=== PATIENT | male | born 1970 | race Two or more races ===

== ENCOUNTER → 2022-03-11 | Outpatient (REF) | payer OTHER ==
[2022-03-11 19:00] LABS: CREATININE,RANDOM URINE 43.8 MG/DL
== END ==
LOC: M LAB REF 17:40
PROVIDERS: ATTEND Internal Medicine Nephrology
DX: E87.1 Hypo-osmolality and hyponatremia (principal)

== ENCOUNTER 2022-03-30 23:01 | Inpatient (IN) | payer OTHER ==
[~2022-03-30] VITALS: Ht 175.3 cm; Wt 103.1 kg
[2022-03-31 11:00] VITALS: BP 135/80
[2022-03-31] MEDS ORDERED: D10W 1,000 ML IV SCH (11:15)
[2022-03-31] MEDS ORDERED: OCTREOTIDE ACETATE 100MCG/ML VIAL **IV ADMINISTRATION ONLY IV ONE (11:40)
[2022-03-31 12:06] LABS: BASO % 0.4 % (0.0-1.0); EOS % 0.4 % (0.0-3.0); HEMATOCRIT 35.5 % (42.0-52.0); HEMOGLOBIN 10.1 g/dl (13.5-17.5); LYMPH # 0.5 10^3/uL (1.5-5.0); LYMPH % 9.4 % (24.0-44.0); MEAN CORPUSCULAR HEMOGLOBIN 21.1 pg (27.0-33.0); MEAN CORPUSCULAR HGB CONC 28.5 g/dl (32.0-36.5); MEAN CORPUSCULAR VOLUME 74.3 fl (80.0-96.0); MONO # 0.7 10^3/uL (0.0-0.8); MONO % 13.2 % (2.0-8.0); NEUTROPHILS # 4.2 10^3/uL (1.5-8.5); NEUTROPHILS % 76.1 % (36.0-66.0); PLATELET COUNT, AUTOMATED 290 10^3/uL (150-450); RED BLOOD COUNT 4.78 10^6/uL (4.30-6.10); WHITE BLOOD COUNT 5.5 10^3/uL (4.0-10.0)
[2022-03-31 12:29] LABS: MAGNESIUM LEVEL 1.9 MG/DL (1.8-2.4)
[2022-03-31 12:31] LABS: ALBUMIN 3.3 G/DL (3.2-5.2); ALKALINE PHOSPHATASE 131 U/L (46-116); ALT/SGPT 24 U/L (7.0-40); AST/SGOT 31 U/L (<34); BILIRUBIN,TOTAL 1.3 MG/DL (0.3-1.2); BLOOD UREA NITROGEN 13 MG/DL (9-23); CALCIUM LEVEL 8.4 MG/DL (8.5-10.1); CARBON DIOXIDE LEVEL 24 MMOL/L (20-31); CHLORIDE LEVEL 98 MMOL/L (98-107); CREATININE FOR GFR 0.76 MG/DL (0.70-1.30); GLOMERULAR FILTRATION RATE > 60.0 (>56); GLUCOSE, FASTING 107 MG/DL (60-100); POTASSIUM SERUM 3.9 MMOL/L (3.5-5.1); SODIUM LEVEL 131 MMOL/L (136-145); TOTAL PROTEIN 6.8 G/DL (5.7-8.2)
[2022-03-31] MEDS ORDERED: AMIL25TA PO (12:31)
[2022-03-31] MEDS ORDERED: METF750T36 PO (12:31)
[2022-03-31] MEDS ORDERED: GLIP10TA18 PO (12:31)
[2022-03-31] MEDS ORDERED: ATOR80TA59 PO (12:31)
[2022-03-31] MEDS ORDERED: FARX1TAB3 PO (12:31)
[2022-03-31] MEDS ORDERED: ENTR1TAB PO (12:31)
[2022-03-31] MEDS ORDERED: ASPI-226 PO (12:31)
[2022-03-31] MEDS ORDERED: CLOP75TA2 PO (12:31)
[2022-03-31] MEDS ORDERED: GLIP5TAB20 PO (12:31)
[2022-03-31] MEDS ORDERED: OMEP20TA17 PO (12:32)
[2022-03-31] MEDS ORDERED: VITA200012 PO (12:32)
[2022-03-31] MEDS ORDERED: HOME MED LIST COMPLETE! XX SCH (12:35)
[2022-03-31 13:08] VITALS: BP 116/78
[2022-03-31] MEDS: CLOPIDOGREL 75 MG TAB PO SCH (13:14)
[2022-03-31] MEDS: ASPIRIN 81MG ENTERIC TABLET PO SCH (13:14)
[2022-03-31 15:49] LABS: IRON (FE) 27 UG/DL (65-175); PERCENT SATURATION 7.8 % (19.7-50.0); TOTAL IRON BINDING CAPACITY 347 UG/DL (250-425)
[2022-03-31 15:52] LABS: FERRITIN 53.8 NG/ML (10.5-307.3)
[2022-03-31 16:00] VITALS: BP 133/69
[2022-03-31] MEDS: ATORVASTATIN 20 MG TAB PO SCH (16:01)
[2022-03-31] MEDS: aMILoride 5 MG TAB PO SCH (16:02)
[2022-03-31] MEDS ORDERED: FERRIC CARBOXYMALTOSE INJ 750 MG, VIAL MATE ADAPTER 1 EACH in NS 250 ML IV ONE (19:00)
[2022-03-31 20:00] VITALS: BP 124/75
[2022-03-31] MEDS: OSELTAMIVIR PHOSPHATE 75 MG CAP (TAMIFLU) PO SCH (20:33)
[2022-04-01] VITALS: BP 120/71
[2022-04-01 04:00] VITALS: BP 125/74
[2022-04-01 04:44] LABS: HEMATOCRIT 33.3 % (42.0-52.0); HEMOGLOBIN 9.8 g/dl (13.5-17.5); MEAN CORPUSCULAR HEMOGLOBIN 21.7 pg (27.0-33.0); MEAN CORPUSCULAR HGB CONC 29.4 g/dl (32.0-36.5); MEAN CORPUSCULAR VOLUME 73.7 fl (80.0-96.0); PLATELET COUNT, AUTOMATED 259 10^3/uL (150-450); RED BLOOD COUNT 4.52 10^6/uL (4.30-6.10); WHITE BLOOD COUNT 4.5 10^3/uL (4.0-10.0)
[2022-04-01 05:06] LABS: BLOOD UREA NITROGEN 13 MG/DL (9-23); CALCIUM LEVEL 8.2 MG/DL (8.5-10.1); CARBON DIOXIDE LEVEL 22 MMOL/L (20-31); CHLORIDE LEVEL 98 MMOL/L (98-107); CREATININE FOR GFR 0.83 MG/DL (0.70-1.30); GLOMERULAR FILTRATION RATE > 60.0 (>56); GLUCOSE, FASTING 136 MG/DL (60-100); POTASSIUM SERUM 4.2 MMOL/L (3.5-5.1); SODIUM LEVEL 129 MMOL/L (136-145)
[2022-04-01] MEDS ORDERED: GLUCAGON INJ 1MG VIAL SC PRN (07:35)
[2022-04-01] MEDS ORDERED: DEXTROSE 50% 50 ML SYRINGE IV PRN (07:35)
[2022-04-01] MEDS ORDERED: GLUCOSE 4GM CHEW TABLET PO PRN (07:35)
[2022-04-01 08:00] VITALS: BP 121/77
[2022-04-01] MEDS: ASPIRIN 81MG ENTERIC TABLET PO SCH (08:58)
[2022-04-01] MEDS: aMILoride 5 MG TAB PO SCH (08:58)
[2022-04-01] MEDS: OSELTAMIVIR PHOSPHATE 75 MG CAP (TAMIFLU) PO SCH (08:58)
[2022-04-01] MEDS: CLOPIDOGREL 75 MG TAB PO SCH (08:58)
[2022-04-01] MEDS: ATORVASTATIN 20 MG TAB PO SCH (08:58)
[2022-04-01] MEDS ORDERED: PANTOPRAZOLE 40MG TAB (PROTONIX) PO SCH (09:00)
[2022-04-01] MEDS ORDERED: ATORVASTATIN 20 MG TAB PO SCH (09:00)
[2022-04-01] MEDS ORDERED: amLODIPine 5 MG TAB PO SCH (09:00)
[2022-04-01] MEDS ORDERED: BENZONATATE 100MG CAPSULE PO PRN (10:15)
[2022-04-01] MEDS ORDERED: BENZ-18 PO (10:18)
[2022-04-01] MEDS ORDERED: PANT40TA29 PO (10:18)
[2022-04-01] MEDS ORDERED: OSEL75CA PO (10:18)
[2022-04-01] MEDS ORDERED: ENTR1TAB PO (10:18)
== END 2022-04-01 12:06 | disposition home or self-care (01) | DRG 420 ==
LOC: M ICU 03-31 11:03 → UNDOADMIN 03-31 11:03 → M ICU 03-31 11:06
PROVIDERS: ADMIT Internal Medicine; ATTEND Internal Medicine
DX: E11.649 Type 2 diabetes mellitus with hypoglycemia without coma (principal); I11.0 Hypertensive heart disease with heart failure; I50.22 Chronic systolic (congestive) heart failure; I48.11 Longstanding persistent atrial fibrillation; T38.3X5A Adverse effect of insulin and oral hypoglycemic [antidiabetic] drugs, initial encounter; K21.9 Gastro-esophageal reflux disease without esophagitis; J10.1 Influenza due to other identified influenza virus with other respiratory manifestations; D50.9 Iron deficiency anemia, unspecified; R55 Syncope and collapse; I69.398 Other sequelae of cerebral infarction; H53.451 Other localized visual field defect, right eye; Z79.82 Long term (current) use of aspirin; Z79.02 Long term (current) use of antithrombotics/antiplatelets; Z79.84 Long term (current) use of oral hypoglycemic drugs; Z79.899 Other long term (current) drug therapy; Z88.0 Allergy status to penicillin; Z87.891 Personal history of nicotine dependence

== ENCOUNTER → 2022-04-29 | Outpatient (CLI) | payer OTHER ==
[~2022-04-29] MED LIST: AMIL25TA PO; ASPI-226 PO; ATOR80TA59 PO; BENZ-18 PO; CLOP75TA2 PO; ENTR1TAB PO; FARX1TAB3 PO; GLIP10TA18 PO; GLIP5TAB20 PO; METF750T36 PO; OMEP20TA17 PO; OSEL75CA PO; PANT40TA29 PO; VITA200012 PO
== END ==
LOC: M LABSMTC 11:07
PROVIDERS: ATTEND Anesthesiology
DX: Z01.818 Encounter for other preprocedural examination (principal)

== ENCOUNTER 2022-05-03 12:22 | Day surgery (SDC) | payer OTHER ==
[~2022-05-03] VITALS: Ht 175.3 cm; Wt 103.0 kg
[2022-05-03] MEDS ORDERED: LR 1,000 ML IV SCH (12:55)
[2022-05-03] MEDS ORDERED: CETACAINE SPRAY 5GM As Ordered ONE (15:13)
[2022-05-03] MEDS ORDERED: LIDOCAINE 2% 100MG/5ML SDV (FOR ANES.) As Ordered ONE (15:30)
[2022-05-03] MEDS ORDERED: propofoL 200 MG/20 ML VIAL As Ordered ONE (15:30)
[2022-05-03] MEDS ORDERED: MIDAZOLAM INJ 2MG/2ML VIAL As Ordered ONE (15:31)
[2022-05-03 17:15] VITALS: BP 147/88
== END 2022-05-03 18:25 | disposition home or self-care (01) ==
LOC: M OPP 12:22
PROVIDERS: ATTEND Internal Medicine Cardiovascular Disease
DX: Z95.818 Presence of other cardiac implants and grafts (principal); Z88.0 Allergy status to penicillin

== ENCOUNTER → 2023-03-06 | Outpatient (REF) | payer OTHER ==
[2023-03-06 19:37] LABS: FREE T4 1.16 NG/DL (0.89-1.76)
[2023-03-07 11:49] LABS: THYROID STIMULATING HORMONE 2.729 uIU/ML (0.55-4.78)
== END ==
LOC: M LAB REF 17:31
PROVIDERS: ATTEND Internal Medicine Nephrology
DX: I50.33 Acute on chronic diastolic (congestive) heart failure (principal); E03.9 Hypothyroidism, unspecified

== ENCOUNTER → 2023-03-17 | Outpatient (CLI) | payer OTHER | LOC: M PLARAD 12:28 | PROVIDERS: ATTEND Internal Medicine Pulmonary Disease | DX: R91.1 Solitary pulmonary nodule (principal) ==

== ENCOUNTER → 2023-05-06 | Outpatient (REF) | payer OTHER | LOC: M LAB REF 16:59 | PROVIDERS: ATTEND Internal Medicine Nephrology | DX: D89.2 Hypergammaglobulinemia, unspecified (principal) ==

== ENCOUNTER 2023-05-22 20:46 | Observation (INO) | payer OTHER ==
[~2023-05-22] VITALS: Ht 175.3 cm; Wt 110.5 kg
[2023-05-22] MEDS ORDERED: POTA10CA60 PO (20:56)
[2023-05-22] MEDS ORDERED: PANT40TA29 PO (20:56)
[2023-05-22] MEDS ORDERED: SPIR-10 PO (20:56)
[2023-05-22] MEDS ORDERED: TORS100T PO (20:56)
[2023-05-22] MEDS ORDERED: TORS20TA2 PO (20:56)
[2023-05-22] MEDS ORDERED: IRON1TAB2 PO (20:56)
[2023-05-22 21:57] LABS: BASO # 0.1 10^3/uL (0.0-0.2); BASO % 0.8 % (0.0-1.0); EOS # 0.2 10^3/uL (0.0-0.5); EOS % 1.6 % (0.0-3.0); HEMATOCRIT 39.4 % (42.0-52.0); HEMOGLOBIN 13.7 g/dl (13.5-17.5); LYMPH # 1.1 10^3/uL (1.5-5.0); LYMPH % 10.7 % (24.0-44.0); MEAN CORPUSCULAR HEMOGLOBIN 33.3 pg (27.0-33.0); MEAN CORPUSCULAR HGB CONC 34.8 g/dl (32.0-36.5); MEAN CORPUSCULAR VOLUME 95.9 fl (80.0-96.0); MONO # 1.3 10^3/uL (0.0-0.8); MONO % 12.4 % (2.0-8.0); NEUTROPHILS # 7.6 10^3/uL (1.5-8.5); NEUTROPHILS % 74.2 % (36.0-66.0); PLATELET COUNT, AUTOMATED 220 10^3/uL (150-450); RED BLOOD COUNT 4.11 10^6/uL (4.30-6.10); WHITE BLOOD COUNT 10.2 10^3/uL (4.0-10.0)
[2023-05-22 22:35] LABS: CALCIUM LEVEL 9.8 MG/DL (8.5-10.1); CREATININE FOR GFR 2.25 MG/DL (0.70-1.30); GLOMERULAR FILTRATION RATE 32.6 (>56); POTASSIUM SERUM 4.1 MMOL/L (3.5-5.1)
[2023-05-23] MEDS ORDERED: NS 1,000 ML IV ONE (04:05)
[2023-05-23 04:54] LABS: RSV AMPLIFICATION NEGATIVE (NEGATIVE)
[2023-05-23 05:18] LABS: CK-MB VALUE MASS 2.5 NG/ML (<3.6)
[2023-05-23 05:19] LABS: MB/CK RELATIVE INDEX 2.29 (< OR =4)
[2023-05-23] MEDS ORDERED: ACETAMINOPHEN TAB 650MG DOSE (2X325MG) PO PRN (05:55)
[2023-05-23] MEDS ORDERED: POTA-150 PO (06:49)
[2023-05-23] MEDS ORDERED: FERR1TAB8 PO (06:49)
[2023-05-23] MEDS ORDERED: ENTR1TAB PO (06:49)
[2023-05-23] MEDS ORDERED: HOME MED LIST COMPLETE! XX SCH (06:50)
[2023-05-23] MEDS ORDERED: GLUCAGON INJ 1MG VIAL SC PRN (07:00)
[2023-05-23] MEDS ORDERED: DEXTROSE 50% 50ML SYRINGE IV PRN (07:00)
[2023-05-23] MEDS ORDERED: GLUCOSE 4GM CHEW TABLET PO PRN (07:00)
[2023-05-23 07:32] LABS: HEMATOCRIT 41.1 % (42.0-52.0); HEMOGLOBIN 13.9 g/dl (13.5-17.5); MEAN CORPUSCULAR HEMOGLOBIN 32.7 pg (27.0-33.0); MEAN CORPUSCULAR HGB CONC 33.8 g/dl (32.0-36.5); MEAN CORPUSCULAR VOLUME 96.7 fl (80.0-96.0); PLATELET COUNT, AUTOMATED 206 10^3/uL (150-450); RED BLOOD COUNT 4.25 10^6/uL (4.30-6.10); WHITE BLOOD COUNT 8.8 10^3/uL (4.0-10.0)
[2023-05-23 07:48] LABS: CK-MB VALUE MASS 2.3 NG/ML (<3.6)
[2023-05-23 07:49] LABS: CALCIUM LEVEL 9.4 MG/DL (8.5-10.1); CREATININE FOR GFR 1.92 MG/DL (0.70-1.30); GLOMERULAR FILTRATION RATE 39.2 (>56); MB/CK RELATIVE INDEX 2.34 (< OR =4); POTASSIUM SERUM 4.1 MMOL/L (3.5-5.1)
[2023-05-23] MEDS: PANTOPRAZOLE 40MG TAB (PROTONIX) PO SCH (08:49)
[2023-05-23] MEDS: ATORVASTATIN 20 MG TAB PO SCH (08:49)
[2023-05-23] MEDS: INSULIN LISPRO (NovoLOG) PER UNIT SC SCH ×3 (08:49→16:52)
[2023-05-23] MEDS: ASPIRIN 81MG ENTERIC TABLET PO SCH (08:49)
[2023-05-23 10:58] VITALS: BP 123/75; TEMP 97.3; O2SAT 98
[2023-05-23] MEDS: HEPARIN SOD (PORCINE) 5000UNITS/ML 1ML VIAL/SYRINGE SC SCH ×2 (13:13→21:05)
[2023-05-23 13:41] VITALS: BP 120/75; TEMP 97.7; O2SAT 96
[2023-05-23 20:40] VITALS: BP 117/72; TEMP 97.5; O2SAT 93
[2023-05-23] MEDS ORDERED: INSULIN LISPRO (NovoLOG) PER UNIT SC SCH (21:00)
[2023-05-24] MEDS: HEPARIN SOD (PORCINE) 5000UNITS/ML 1ML VIAL/SYRINGE SC SCH (05:38)
[2023-05-24 06:00] VITALS: BP 114/74; TEMP 97.5; O2SAT 97
[2023-05-24 06:14] LABS: ALBUMIN 3.7 G/DL (3.2-5.2); CALCIUM LEVEL 9.4 MG/DL (8.5-10.1); CREATININE FOR GFR 1.61 MG/DL (0.70-1.30); PHOSPHORUS LEVEL 4.3 MG/DL (2.5-4.9); POTASSIUM SERUM 4.1 MMOL/L (3.5-5.1)
[2023-05-24] MEDS: PANTOPRAZOLE 40MG TAB (PROTONIX) PO SCH (07:56)
[2023-05-24] MEDS: ASPIRIN 81MG ENTERIC TABLET PO SCH (07:56)
[2023-05-24] MEDS: ATORVASTATIN 20 MG TAB PO SCH (07:56)
[2023-05-24] MEDS: INSULIN LISPRO (NovoLOG) PER UNIT SC SCH ×2 (07:56→11:54)
[2023-05-24] MEDS ORDERED: SPIRONOLACTONE 25 MG TAB PO ONE (11:00)
[2023-05-24] MEDS ORDERED: TORSEMIDE 100 MG TAB PO ONE (11:00)
[2023-05-25] MEDS ORDERED: TORSEMIDE 100 MG TAB PO SCH (09:00)
[2023-05-25] MEDS ORDERED: SPIRONOLACTONE 25 MG TAB PO SCH (09:00)
== END 2023-05-24 12:07 | disposition home or self-care (01) ==
LOC: M ED 20:46 → M ED INP 20:47 → M MSPAV 05-23 10:58
PROVIDERS: ADMIT Internal Medicine; ATTEND Internal Medicine Nephrology
DX: N17.8 Other acute kidney failure (principal); I50.30 Unspecified diastolic (congestive) heart failure; I50.812 Chronic right heart failure; I48.91 Unspecified atrial fibrillation; Z86.73 Personal history of transient ischemic attack (TIA), and cerebral infarction without residual deficits; K21.9 Gastro-esophageal reflux disease without esophagitis; I11.9 Hypertensive heart disease without heart failure; E11.9 Type 2 diabetes mellitus without complications; E78.5 Hyperlipidemia, unspecified; G47.33 Obstructive sleep apnea (adult) (pediatric); Z79.82 Long term (current) use of aspirin; Z79.84 Long term (current) use of oral hypoglycemic drugs; Z79.899 Other long term (current) drug therapy; Z88.0 Allergy status to penicillin; Z88.8 Allergy status to other drugs, medicaments and biological substances
CPT/HCPCS: 36415; 71045; 76775; 80048; 80069; 81001; 82550; 82553; 83880; 84484; 85025; 85027; 87631; 93005; 96372; 96374; 99284; J1815

== ENCOUNTER → 2023-06-11 | Outpatient (CLI) | payer OTHER ==
[~2023-06-11] MED LIST changes: +FERR1TAB8 PO; +IRON1TAB2 PO; +POTA-150 PO; +POTA10CA60 PO; +SPIR-10 PO; +TORS100T PO; +TORS20TA2 PO
== END ==
LOC: M PLAIMG 08:45
PROVIDERS: ATTEND Internal Medicine Cardiovascular Disease
DX: I11.0 Hypertensive heart disease with heart failure (principal); I34.0 Nonrheumatic mitral (valve) insufficiency; I50.32 Chronic diastolic (congestive) heart failure

== ENCOUNTER → 2023-11-05 | Outpatient (CLI) | payer OTHER ==
[~2023-11-05] MED LIST changes: -POTA10CA60 PO; +POTA10CA70 PO
[2023-11-05 17:26] LABS: BASO # 0.1 10^3/uL (0.0-0.2); BASO % 0.9 % (0.0-1.0); EOS # 0.2 10^3/uL (0.0-0.5); EOS % 1.8 % (0.0-3.0); HEMATOCRIT 41.9 % (42.0-52.0); HEMOGLOBIN 13.8 g/dl (13.5-17.5); LYMPH # 0.9 10^3/uL (1.5-5.0); LYMPH % 6.8 % (24.0-44.0); MEAN CORPUSCULAR HEMOGLOBIN 33.1 pg (27.0-33.0); MEAN CORPUSCULAR HGB CONC 32.9 g/dl (32.0-36.5); MEAN CORPUSCULAR VOLUME 100.5 fl (80.0-96.0); MONO # 1.6 10^3/uL (0.0-0.8); MONO % 12.4 % (2.0-8.0); NEUTROPHILS # 9.7 10^3/uL (1.5-8.5); NEUTROPHILS % 77.5 % (36.0-66.0); PLATELET COUNT, AUTOMATED 232 10^3/uL (150-450); RED BLOOD COUNT 4.17 10^6/uL (4.30-6.10); WHITE BLOOD COUNT 12.5 10^3/uL (4.0-10.0)
[2023-11-05 18:01] LABS: ALBUMIN 3.9 G/DL (3.2-5.2); CALCIUM LEVEL 9.4 MG/DL (8.5-10.1); CREATININE FOR GFR 1.37 MG/DL (0.70-1.30); GLOMERULAR FILTRATION RATE 57.6 (>56); MAGNESIUM LEVEL 2.1 MG/DL (1.8-2.4); PERCENT SATURATION 23.8 % (19.7-50.0); PHOSPHORUS LEVEL 3.1 MG/DL (2.5-4.9); POTASSIUM SERUM 4.1 MMOL/L (3.5-5.1)
== END ==
LOC: M PLALAB 14:35
PROVIDERS: ATTEND Internal Medicine Cardiovascular Disease
DX: I50.22 Chronic systolic (congestive) heart failure (principal); I48.21 Permanent atrial fibrillation; I34.0 Nonrheumatic mitral (valve) insufficiency; I11.0 Hypertensive heart disease with heart failure

== ENCOUNTER → 2023-11-21 | Outpatient (REF) | payer OTHER ==
[2023-11-21 18:09] LABS: ALBUMIN 3.9 G/DL (3.2-5.2); BILIRUBIN,DIRECT 1.1 MG/DL (<0.4); BILIRUBIN,TOTAL 1.9 MG/DL (0.3-1.2); TOTAL PROTEIN 7.5 G/DL (5.7-8.2)
== END ==
LOC: M LAB REF 17:09
PROVIDERS: ATTEND Internal Medicine Nephrology
DX: E87.1 Hypo-osmolality and hyponatremia (principal); R18.8 Other ascites

== ENCOUNTER → 2024-02-11 | Outpatient (CLI) | payer OTHER ==
[2024-02-11 11:40] LABS: BASO # 0.1 10^3/uL (0.0-0.2); BASO % 0.7 % (0.0-1.0); EOS # 0.2 10^3/uL (0.0-0.5); EOS % 2.1 % (0.0-3.0); HEMATOCRIT 37.2 % (42.0-52.0); HEMOGLOBIN 12.5 g/dl (13.5-17.5); LYMPH # 0.7 10^3/uL (1.5-5.0); LYMPH % 6.2 % (24.0-44.0); MEAN CORPUSCULAR HEMOGLOBIN 33.2 pg (27.0-33.0); MEAN CORPUSCULAR HGB CONC 33.6 g/dl (32.0-36.5); MEAN CORPUSCULAR VOLUME 98.9 fl (80.0-96.0); MONO # 1.7 10^3/uL (0.0-0.8); NEUTROPHILS # 8.4 10^3/uL (1.5-8.5); NEUTROPHILS % 75.6 % (36.0-66.0); PLATELET COUNT, AUTOMATED 265 10^3/uL (150-450); RED BLOOD COUNT 3.76 10^6/uL (4.30-6.10)
[2024-02-11 12:07] LABS: ALBUMIN 3.9 G/DL (3.2-5.2); CALCIUM LEVEL 10.2 MG/DL (8.5-10.1); CREATININE FOR GFR 2.31 MG/DL (0.70-1.30); GLOMERULAR FILTRATION RATE 31.5 (>56); PERCENT SATURATION 23.8 % (19.7-50.0); PHOSPHORUS LEVEL 3.9 MG/DL (2.5-4.9)
[2024-02-11 12:08] LABS: FERRITIN 179.3 NG/ML (10.5-307.3)
== END ==
LOC: M LAB 09:11
PROVIDERS: ATTEND Internal Medicine Cardiovascular Disease
DX: I50.22 Chronic systolic (congestive) heart failure (principal)

== ENCOUNTER → 2024-02-19 | Outpatient (CLI) | payer OTHER | LOC: M EKG 07:57 | PROVIDERS: ATTEND Internal Medicine Cardiovascular Disease | DX: I44.30 Unspecified atrioventricular block (principal); I48.91 Unspecified atrial fibrillation ==

== ENCOUNTER → 2024-03-08 | Outpatient (CLI) | payer OTHER | LOC: M PLAIMG 08:25 | PROVIDERS: ATTEND Internal Medicine Cardiovascular Disease | DX: I50.22 Chronic systolic (congestive) heart failure (principal); I34.0 Nonrheumatic mitral (valve) insufficiency; I27.20 Pulmonary hypertension, unspecified ==

== ENCOUNTER → 2024-04-15 | Outpatient (CLI) | payer OTHER ==
[2024-04-15 16:25] VITALS: BP 121/69; O2SAT 100
== END ==
LOC: M IRPRO 13:44
PROVIDERS: ATTEND Internal Medicine Nephrology
DX: R18.8 Other ascites (principal)

== ENCOUNTER → 2024-05-28 | Outpatient (CLI) | payer OTHER ==
[~2024-05-28] MED LIST changes: +ALLO10TA PO; +BREO1INH INH; +COLC1TAB14 PO; +D3 U5000 PO; +MAGN400T2 PO; +SEMA0.257 SUBQ
== END ==
LOC: M EKG 08:50
PROVIDERS: ATTEND Registered Nurse
DX: I48.91 Unspecified atrial fibrillation (principal); R00.1 Bradycardia, unspecified

== ENCOUNTER 2024-05-31 11:40 | Inpatient (IN) | payer OTHER ==
[~2024-05-31] VITALS: Ht 175.3 cm; Wt 122.5 kg
[~2024-05-31 11:40] MED LIST changes: -ALLO10TA PO; -BREO1INH INH; -COLC1TAB14 PO; -D3 U5000 PO; -MAGN400T2 PO; -SEMA0.257 SUBQ
[2024-05-31 13:02] LABS: BASO # 0.1 10^3/uL (0.0-0.2); BASO % 1.1 % (0.0-1.0); EOS % 0.6 % (0.0-3.0); HEMATOCRIT 33.9 % (42.0-52.0); HEMOGLOBIN 11.5 g/dl (13.5-17.5); LYMPH # 0.5 10^3/uL (1.5-5.0); LYMPH % 7.3 % (24.0-44.0); MEAN CORPUSCULAR HEMOGLOBIN 33.1 pg (27.0-33.0); MEAN CORPUSCULAR HGB CONC 33.9 g/dl (32.0-36.5); MEAN CORPUSCULAR VOLUME 97.7 fl (80.0-96.0); MONO # 1.4 10^3/uL (0.0-0.8); MONO % 21.9 % (2.0-8.0); NEUTROPHILS # 4.2 10^3/uL (1.5-8.5); NEUTROPHILS % 68.8 % (36.0-66.0); PLATELET COUNT, AUTOMATED 217 10^3/uL (150-450); RED BLOOD COUNT 3.47 10^6/uL (4.30-6.10); WHITE BLOOD COUNT 6.2 10^3/uL (4.0-10.0)
[2024-05-31 13:21] LABS: INR 1.28; PROTHROMBIN TIME 16.3 SECONDS (12.5-14.5)
[2024-05-31 13:22] LABS: ALBUMIN 3.9 G/DL (3.2-5.2); BILIRUBIN,DIRECT 1.1 MG/DL (<0.4); CALCIUM LEVEL 9.3 MG/DL (8.5-10.1); CREATININE FOR GFR 4.04 MG/DL (0.70-1.30); GLOMERULAR FILTRATION RATE 16.5 (>56); MAGNESIUM LEVEL 2.3 MG/DL (1.8-2.4); POTASSIUM SERUM 5.5 MMOL/L (3.5-5.1); TOTAL PROTEIN 7.9 G/DL (5.7-8.2)
[2024-05-31] MEDS ORDERED: ALLO10TA PO (14:38)
[2024-05-31] MEDS ORDERED: BREO1INH INH (14:38)
[2024-05-31] MEDS ORDERED: COLC1TAB14 PO (14:38)
[2024-05-31] MEDS ORDERED: MAGN400T2 PO (14:38)
[2024-05-31] MEDS ORDERED: D3 U5000 PO (14:38)
[2024-05-31] MEDS ORDERED: SEMA0.257 SUBQ (14:41)
[2024-05-31] MEDS: PATIROMER SORBITEX CALCIUM 8.4 GM POWDER PACKET (VELTASSA) PO ONE (14:42)
[2024-05-31] MEDS ORDERED: HOME MED LIST COMPLETE! XX SCH (14:50)
[2024-05-31 16:24] LABS: PROCALCITONIN 0.27 ng/ml
[2024-05-31 17:57] LABS: APPEARANCE, BODY FLUID HAZY (CLEAR); PERITONEAL FL COLOR AMBER (COLORLESS); SOURCE, BODY FLUID PERITONEAL
[2024-05-31 18:24] LABS: SOURCE, BODY FLUID ALBUMIN PERITONEAL
[2024-05-31 18:29] LABS: SOURCE, BODY FLUID GLUCOSE PERITONEAL
[2024-05-31 18:30] LABS: SOURCE, BODY FLUID TOT PROTEIN PERITONEAL; TOTAL PROTEIN, BODY FLUID 4.8 G/DL (NOT ESTABLISHED)
[2024-05-31] MEDS: NS (Normal Saline) 0.9% 1,000 ML IV SCH (18:33)
[2024-05-31 19:19] LABS: CALCIUM LEVEL 8.8 MG/DL (8.5-10.1); CREATININE FOR GFR 3.89 MG/DL (0.70-1.30); GLOMERULAR FILTRATION RATE 17.3 (>56); POTASSIUM SERUM 5.2 MMOL/L (3.5-5.1)
[2024-05-31] MEDS: HEPARIN SOD (PORCINE) 5000UNITS/ML 1ML VIAL/SYRINGE SQ SCH (21:01)
[2024-05-31] MEDS: ADVAIR HFA 115/21MCG INHALER INH SCH (22:15)
[2024-06-01 07:47] LABS: ALBUMIN 3.3 G/DL (3.2-5.2); BILIRUBIN,TOTAL 1.9 MG/DL (0.3-1.2); CREATININE FOR GFR 3.23 MG/DL (0.70-1.30); GLOMERULAR FILTRATION RATE 21.4 (>56); TOTAL PROTEIN 6.7 G/DL (5.7-8.2)
[2024-06-01] MEDS: ASPIRIN 81MG ENTERIC TABLET PO SCH (08:07)
[2024-06-01] MEDS: MAGNESIUM OXIDE 400MG TAB (MAG-OX) PO SCH (08:08)
[2024-06-01] MEDS: ATORVASTATIN 20 MG TAB PO SCH (08:08)
[2024-06-01] MEDS: PANTOPRAZOLE 40MG TAB (PROTONIX) PO SCH (08:08)
[2024-06-01 08:09] LABS: BASO % 0.8 % (0.0-1.0); EOS % 0.4 % (0.0-3.0); HEMATOCRIT 32.6 % (42.0-52.0); LYMPH # 0.4 10^3/uL (1.5-5.0); LYMPH % 8.4 % (24.0-44.0); MEAN CORPUSCULAR HGB CONC 33.7 g/dl (32.0-36.5); MEAN CORPUSCULAR VOLUME 97.9 fl (80.0-96.0); MONO # 1.3 10^3/uL (0.0-0.8); MONO % 25.1 % (2.0-8.0); NEUTROPHILS # 3.4 10^3/uL (1.5-8.5); NEUTROPHILS % 65.1 % (36.0-66.0); PLATELET COUNT, AUTOMATED 179 10^3/uL (150-450); RED BLOOD COUNT 3.33 10^6/uL (4.30-6.10); WHITE BLOOD COUNT 5.2 10^3/uL (4.0-10.0)
[2024-06-01] MEDS ORDERED: DAPAGLIFLOZIN PROPANEDIOL 10MG TABLET (FARXIGA) PO SCH (09:00)
[2024-06-01] MEDS: INSULIN LISPRO (NovoLOG) PER UNIT SC SCH ×2 (12:00→21:00)
[2024-06-01] MEDS: PATIROMER SORBITEX CALCIUM 8.4 GM POWDER PACKET (VELTASSA) PO ONE (12:10)
[2024-06-01] MEDS ORDERED: DEXTROSE 50% 50ML SYRINGE IV PRN (12:30)
[2024-06-01] MEDS ORDERED: GLUCAGON INJ 1MG VIAL SC PRN (12:30)
[2024-06-01] MEDS ORDERED: GLUCOSE 4 GM CHEW PO PRN (12:30)
[2024-06-01 13:49] VITALS: BP 119/65; TEMP 97.7; O2SAT 98
[2024-06-01 20:00] VITALS: BP 125/65; TEMP 97.9; O2SAT 96
[2024-06-02 04:39] VITALS: BP 108/69; TEMP 97.3; O2SAT 98
[2024-06-02 06:18] LABS: BASO % 0.7 % (0.0-1.0); EOS # 0.1 10^3/uL (0.0-0.5); HEMATOCRIT 34.7 % (42.0-52.0); HEMOGLOBIN 11.5 g/dl (13.5-17.5); LYMPH # 0.5 10^3/uL (1.5-5.0); LYMPH % 8.4 % (24.0-44.0); MEAN CORPUSCULAR HEMOGLOBIN 32.5 pg (27.0-33.0); MEAN CORPUSCULAR HGB CONC 33.1 g/dl (32.0-36.5); MONO # 1.3 10^3/uL (0.0-0.8); MONO % 21.2 % (2.0-8.0); PLATELET COUNT, AUTOMATED 194 10^3/uL (150-450); RED BLOOD COUNT 3.54 10^6/uL (4.30-6.10); WHITE BLOOD COUNT 5.9 10^3/uL (4.0-10.0)
[2024-06-02 06:40] LABS: CALCIUM LEVEL 9.3 MG/DL (8.5-10.1); CREATININE FOR GFR 2.38 MG/DL (0.70-1.30); GLOMERULAR FILTRATION RATE 30.5 (>56); MAGNESIUM LEVEL 2.2 MG/DL (1.8-2.4); POTASSIUM SERUM 4.5 MMOL/L (3.5-5.1)
[2024-06-02] MEDS ORDERED: METF750T36 PO (10:02)
== END 2024-06-02 12:41 | disposition home or self-care (01) | DRG 469 ==
LOC: M ED 11:40 → M ED INP 15:51 → M MSPAV 06-01 13:46
PROVIDERS: ADMIT Internal Medicine; ATTEND Internal Medicine
PROC: 0W9G3ZZ Drainage of Peritoneal Cavity, Percutaneous Approach (ICD-10-PCS; principal; 2024-05-31 16:00)
PROC: B246ZZZ Ultrasonography of Right and Left Heart (ICD-10-PCS; 2024-06-01)
DX: N17.9 Acute kidney failure, unspecified (principal); R18.8 Other ascites; E11.22 Type 2 diabetes mellitus with diabetic chronic kidney disease; I13.0 Hypertensive heart and chronic kidney disease with heart failure and stage 1 through stage 4 chronic kidney disease, or unspecified chronic kidney disease; E87.1 Hypo-osmolality and hyponatremia; I50.42 Chronic combined systolic (congestive) and diastolic (congestive) heart failure; I27.81 Cor pulmonale (chronic); I48.91 Unspecified atrial fibrillation; E87.5 Hyperkalemia; B97.4 Respiratory syncytial virus as the cause of diseases classified elsewhere; E83.42 Hypomagnesemia; K74.60 Unspecified cirrhosis of liver; I69.398 Other sequelae of cerebral infarction; Z88.0 Allergy status to penicillin; J06.9 Acute upper respiratory infection, unspecified; J44.9 Chronic obstructive pulmonary disease, unspecified; J45.909 Unspecified asthma, uncomplicated; K21.9 Gastro-esophageal reflux disease without esophagitis; D64.9 Anemia, unspecified; G47.30 Sleep apnea, unspecified; M10.9 Gout, unspecified; Z87.891 Personal history of nicotine dependence; Z79.82 Long term (current) use of aspirin; Z79.899 Other long term (current) drug therapy; Z88.8 Allergy status to other drugs, medicaments and biological substances; Z95.828 Presence of other vascular implants and grafts; N18.30 Chronic kidney disease, stage 3 unspecified

== ENCOUNTER → 2024-06-22 | Outpatient (CLI) | payer OTHER ==
[~2024-06-22] MED LIST changes: +ALLO10TA PO; +BREO1INH INH; +COLC1TAB14 PO; +D3 U5000 PO; +MAGN400T2 PO; +SEMA0.257 SUBQ
[2024-06-22 14:17] VITALS: TEMP 98.6
[2024-06-22 14:59] VITALS: BP 103/66; O2SAT 99
== END ==
LOC: M IRPRO 13:48
PROVIDERS: ATTEND Internal Medicine Nephrology
DX: R18.8 Other ascites (principal)

== ENCOUNTER → 2024-07-06 | Outpatient (CLI) | payer OTHER ==
[2024-07-06 13:20] VITALS: TEMP 97.5
[2024-07-06 14:35] VITALS: BP 115/71; O2SAT 97
== END ==
LOC: M IRPRO 13:00
PROVIDERS: ATTEND Internal Medicine Nephrology
DX: R18.8 Other ascites (principal)

== ENCOUNTER → 2024-07-20 | Outpatient (CLI) | payer OTHER ==
[~2024-07-20] MED LIST changes: +CARDIAC STRESS TEST RESCUE BOX 1 KIT EA XX ONE; +GLIP-318 PO; +GLIP-320 PO; -GLIP10TA18 PO; -GLIP5TAB20 PO
[2024-07-20 13:19] VITALS: TEMP 97.9
[2024-07-20 13:52] VITALS: BP 96/52; O2SAT 96
== END ==
LOC: M IRPRO 12:55
PROVIDERS: ATTEND Internal Medicine Nephrology
DX: R18.8 Other ascites (principal)

== ENCOUNTER → 2024-08-12 | Outpatient (CLI) | payer OTHER ==
[~2024-08-12] MED LIST changes: -CARDIAC STRESS TEST RESCUE BOX 1 KIT EA XX ONE
[2024-08-12 14:47] VITALS: TEMP 98
[2024-08-12 17:09] VITALS: BP 100/64; O2SAT 99
== END ==
LOC: M IRPRO 14:20
PROVIDERS: ATTEND Internal Medicine Nephrology
DX: R18.8 Other ascites (principal)

== ENCOUNTER → 2024-08-24 | Outpatient (CLI) | payer OTHER ==
[2024-08-24 13:45] VITALS: BP 92/57; TEMP 97.9; O2SAT 98
== END ==
LOC: M IRPRO 13:23
PROVIDERS: ATTEND Internal Medicine Nephrology
DX: R18.8 Other ascites (principal)

== ENCOUNTER → 2024-09-03 | Outpatient (CLI) | payer OTHER ==
[2024-09-03 12:19] VITALS: BP 106/58; TEMP 97; O2SAT 95
[2024-09-03 12:20] VITALS: BP 106/59; TEMP 97; O2SAT 95
[2024-09-03 12:31] VITALS: BP 95/58; O2SAT 99
== END ==
LOC: M IRPRO 11:04
PROVIDERS: ATTEND Internal Medicine Nephrology
DX: R18.8 Other ascites (principal)
CPT/HCPCS: 49083; 96374; P9047

== ENCOUNTER → 2024-09-14 | Outpatient (CLI) | payer OTHER ==
[~2024-09-14] MED LIST changes: +CARDIAC STRESS TEST RESCUE BOX 1 KIT EA XX ONE
[2024-09-14 11:25] VITALS: BP 106/67; TEMP 98; O2SAT 97
[2024-09-14 11:28] VITALS: BP 105/60; TEMP 97.7; O2SAT 98
[2024-09-14 11:33] VITALS: BP 114/65; TEMP 98; O2SAT 98
[2024-09-14 11:45] VITALS: BP 107/63; O2SAT 99
== END ==
LOC: M IRPRO 10:59
PROVIDERS: ATTEND Internal Medicine Nephrology
DX: R18.8 Other ascites (principal)
CPT/HCPCS: 49083; 96374; P9047

== ENCOUNTER → 2024-10-27 | Outpatient (CLI) | payer OTHER ==
[~2024-10-27] MED LIST changes: -CARDIAC STRESS TEST RESCUE BOX 1 KIT EA XX ONE
[2024-10-27 13:14] VITALS: TEMP 98
[2024-10-27 14:14] VITALS: BP 93/53; O2SAT 98
[2024-10-27 14:17] VITALS: BP 93/56; O2SAT 99
[2024-10-27 14:20] VITALS: BP 97/59; O2SAT 99
== END ==
LOC: M IRPRO 13:08
PROVIDERS: ATTEND Internal Medicine Nephrology
DX: R18.8 Other ascites (principal)
CPT/HCPCS: 49083; 96374; P9047

== ENCOUNTER → 2024-11-10 | Outpatient (CLI) | payer OTHER ==
[2024-11-10 14:00] VITALS: TEMP 98.1
[2024-11-10 14:52] VITALS: BP 91/63; O2SAT 99
[2024-11-10 15:02] VITALS: BP 97/55; O2SAT 98
== END ==
LOC: M IRPRO 13:37
PROVIDERS: ATTEND Internal Medicine Nephrology
DX: R18.8 Other ascites (principal)
CPT/HCPCS: 49083; 96365; P9047

== ENCOUNTER → 2024-11-25 | Outpatient (CLI) | payer OTHER ==
[~2024-11-25] MED LIST changes: +CARDIAC STRESS TEST RESCUE BOX 1 KIT EA XX ONE
[2024-11-25 10:30] VITALS: TEMP 97.8
[2024-11-25 11:31] VITALS: BP 97/59; O2SAT 100
[2024-11-25 11:35] VITALS: BP 104/66; O2SAT 100
== END ==
LOC: M IRPRO 09:17
PROVIDERS: ATTEND Internal Medicine Nephrology
DX: R18.8 Other ascites (principal)
CPT/HCPCS: 49083; 96374; P9047